=== PATIENT | male | born 1940 | race Caucasian/White ===

== ENCOUNTER 2023-11-12 13:28 | Emergency (ER) | payer MEDICARE, OTHER, SELFPAY ==
[2023-11-12 13:29] VITALS: BP 168/79
--- NOTE | 2023-11-12 14:14 | ED.GENMED ---
History of Present Illness
General
Chief Complaint: Skin Surface Trauma
Source: patient
Exam Limitations: none
Time Seen by Provider: 11/12/23 13:46
Travel History
Have you had any contact with someone who has COVID-19?: No
Do you have any symptoms of coronavirus? Fever > 100 degrees, chills, cough, shortness of breath, sore throat, loss of taste or smell, muscle aches, or headache?: No
History of Present Illness
History of Present Illness:
83-year-old male presents with tablesaw injury to right index middle and ring fingers. Last tetanus was in 2018. He denies numbness or tingling or loss of function. No other complaints at this time
Past History
Past History
ED Past Medical History: CAD, Cancer (Thyroid cancer), HTN, Hypercholesterolemia, Hypothyroidism and Other (Ulcerative colitis ,)
ED Past Surgical History: Cardiac (Stents X 2), Orthopedic and Other (Hernia repair, colectomy, ileostomy Pre-Cancerous)
Social History
Tobacco: Non-smoker
Alcohol: None
Drug: None
Personal:
Living: with family
Employment: Employed
Family History
Family History: Other
Phy Exam
Physical Exam
Physical Exam:
General: Well-appearing male no acute respiratory distress HEENT: Normocephalic atraumatic neck is supple
Skin: Right middle finger distally with superficial laceration that involves the volar surface of the finger and distal portion of the nail the right index finger has an injury to the distal portion of the nail but no skin injury and the ring finger
has a chipped part of the nail but no skin laceration
Musculoskeletal exam: Good range of motion all fingers right hand
Neurologic: Good sensation right hand
Course
Orders/Labs/Results
Orders:
Orders
11/12/23 13:32
Hand, Right 3 View [CR Hand - Right Min 3 Views] Urgent
Comment: saw went across hand. middle is the worse
Reason For Exam: attention to index/middle/ring finger tips
11/12/23 14:08
Tetanus/Diphth/Acelpertussis [Adacel] 0.5 ml IM .ONCE ONE
Vital Signs
Initial and Last Documented VS:
Initial Vital Signs
Temp Pulse Resp BP Pulse Ox
98.8 F 83 16 168/79 98
11/12/23 13:29 11/12/23 13:29 11/12/23 13:29 11/12/23 13:29 11/12/23 13:29
Last Documented Vital Signs
Temp Pulse Resp BP Pulse Ox
98.8 F 83 16 168/79 98
11/12/23 13:29 11/12/23 13:29 11/12/23 13:29 11/12/23 13:29 11/12/23 13:29
*Critical Care Note
Total Time (30-74mins, 75-104mins- exclusive of procedures): Not Applicable
Update Note
Update Note:
Loose and malposition pieces of the nail were trimmed off of the index middle and ring fingers of the right hand. The wounds were irrigated with saline. Wounds are well-approximated not currently bleeding no indication for sutures. X-rays of the
right hand were obtained through triage which I have personally reviewed and are negative for acute bony abnormality. Tetanus vaccine updated today and dressings were applied. Stable for discharge
ED Attending Note
-
Portions of this chart may have been created with voice recognition software.� Occasional wrong word or��sound alike� substitutions may have occurred due to the inherent limitations of voice recognition software.
Discharge Plan
Departure
Patient Disposition: Home (Routine Discharge)
Date of Disposition: 11/12/23
Time of Disposition: 14:16
Patient with high blood pressure during this ER visit?: No
Discharge Problem:
Laceration
Instructions: Wound Care (DC)
Prescriptions:
No Action
echinacea-knott seal 1 CAP capsule
1 cap PO DAILYPRN PRN (Reason: ON SET OF COLD )
tamsulosin 0.4 MG capsule
0.4 mg PO DAILY
finasteride 5 MG tablet
5 mg PO QPM
cholecalciferol (vitamin D3) [Vitamin D3] 1,000 UNIT capsule
1,000 unit PO QPM
levothyroxine 175 MCG tablet
175 mcg PO DAILY
desonide 15 GM cream
1 appful topical DAILYPRN PRN (Reason: LEG RASH)
enalapril maleate 10 MG tablet
20 mg PO DAILY
ascorbic acid (vitamin C) [Vitamin C] 500 MG tablet
500 mg PO BID
amlodipine 10 MG tablet
10 mg PO DAILY
aspirin 81 MG tablet,chewable
81 mg PO QPM
dextromethorphan-guaifenesin [Mucus Relief DM Cough] 1 EACH tablet
1 ea PO Q6HPRN PRN (Reason: stuffy nose)
Centrum Silver 1 EACH tablet
1 ea PO DAILY
Visbiome 112.5 billion cell Capsule
1 cap PO DAILY Qty: 0
omega 0-qql-cid-fish oil [Fish Oil] 1 EACH capsule
1 ea PO DAILY
wtvqpqesvcu-L0-Ecebdsola serr [Osteo Bi-Flex (5-Loxin)] 1 EACH tablet
1 ea PO BID
magnesium oxide 400 MG tablet
400 mg PO MOWEFR
atorvastatin [Lipitor] 40 mg Tablet
40 mg PO QPM
ibuprofen 400 mg Tablet
400 mg PO Q6HPRN PRN (Reason: MILD PAIN)
gabapentin 100 mg Capsule
100 mg PO DAILY
folic acid 0.8 mg Capsule
0.8 mg PO DAILY
calcium carbonate-vitamin D3 [Calcium 500 + D] 500 mg-10 mcg (400 unit) Tablet
1 tab PO DAILY
coQ10 (ubiquinol) 100 mg Capsule
100 mg PO QPM
clindamycin HCl
2 tab PO PRN PRN (Reason: dental)
acetaminophen 325 mg Tablet
650 mg PO Q6HPRN PRN (Reason: BURTON, mild pain, or fever >101F) Qty: 0 0RF
Referrals:
Eric Estrada MD [Family Provider] -
Activity Restrictions/Additional Instructions:
Apply antibacterial ointment to the wounds. Change dressing daily. You may use Tylenol if needed for pain. Return if needed otherwise
Interventions
Interventions:
*ED COVID-19 Vaccine History Last Done: 11/12/23 13:29
[2023-11-12] MEDS: ADACEL 0.5 ML IM (14:35)
== END 2023-11-12 14:43 | disposition home or self-care (01) ==
LOC: EMR 13:28
PROVIDERS: EMERGENCY PHYSICIAN Emergency Medicine; FAMILY PHYSICIAN Internal Medicine Geriatric Medicine
DX: S61.310A Laceration without foreign body of right index finger with damage to nail, initial encounter (principal); W31.2XXA Contact with powered woodworking and forming machines, initial encounter; Z23 Encounter for immunization
CPT/HCPCS: 99284; 90471; 73130; 90715

== ENCOUNTER → 2023-11-22 07:08 | Outpatient (REF) | payer MEDICARE, OTHER, SELFPAY | LOC: DHCBS MAIN 07:08 | PROVIDERS: ATTENDING PHYSICIAN Physician Assistant Medical; FAMILY PHYSICIAN Internal Medicine Geriatric Medicine | DX: I25.10 Atherosclerotic heart disease of native coronary artery without angina pectoris (principal); I35.0 Nonrheumatic aortic (valve) stenosis; Z95.2 Presence of prosthetic heart valve | CPT/HCPCS: 93306 ==

== ENCOUNTER → 2024-02-22 08:05 | Outpatient (REF) | payer MEDICARE, OTHER, SELFPAY ==
[2024-02-22 09:20] LABS: % Basophils 0.7 % (0-2); % Immature Granulocytes 0.4 % (0-0.5); % Lymphocytes 20.6 % (20.5-51.1); % Monocytes 9.5 % (1.7-9.3); % Neutrophils 64.8 % (42.2-75.2); Absolute Eosinophils 0.2 10^3/uL (0-0.7); Absolute Lymphocytes 0.9 10^3/uL (1.2-3.4); Absolute Monocytes 0.4 10^3/uL (0.1-0.6); Absolute Neutrophils 2.9 10^3/uL (1.4-6.5); Hematocrit 40.9 % (39.0-52.0); Hemoglobin 13.7 g/dL (13.0-18.0); Mean Corp Hgb Conc. 33.5 g/dL (33.0-37.0); Mean Corpuscular Hgb 31.1 pg (27.0-31.0); Mean Corpuscular Volume 92.7 fL (80.0-94.0); Mean Platelet Volume 9.4 fL (7.4-10.4); Nucleated Red Blood Cells % 0 % (-); Platelet Count 120 10^3/uL (130-400); Red Blood Cell Count 4.41 10^6/uL (4.70-6.10); Red Cell Dist. Width 13.4 % (11.5-14.5); White Blood Cell Count 4.5 10^3/uL (4.8-10.8)
[2024-02-22 09:32] LABS: Erythrocyte Sed Rate 10 mm/hour (0-20)
[2024-02-22 09:57] LABS: ALT (SGPT) 23 U/L (0-50); AST (SGOT) 26 U/L (17-59); Albumin 4.1 g/dl (3.5-5.0); Alkaline Phosphatase 74 U/L (38-126); Blood Urea Nitrogen 23 mg/dl (9-20); Calcium 9.4 mg/dl (8.4-10.2); Carbon Dioxide 23 mmol/L (22-30); Chloride 105 mmol/L (98-107); Glucose 104 mg/dl (70-99); HDL Cholesterol 49 mg/dl; LDL Cholesterol, Calculated 38 mg/dl; Potassium 4.5 mmol/L (3.5-5.1); Sodium 139 mmol/L (135-145); Total Cholesterol 112 mg/dl (50-199); Total Protein 6.2 g/dl (6.3-8.2); Triglyceride 126 mg/dl (10-149); Very Low Density Lipoprotein 25 mg/dl (0-30); eGFR > 60.00
[2024-02-22 10:26] LABS: Free T4 1.69 ng/dl (0.78-2.19); Vitamin D, 25-OH*** 43.1 ng/mL (30-80)
[2024-02-22 10:40] LABS: PSA, Total - Screen 1.65 ng/ml (0.0-4.0); TSH < 0.02 uIU/ml (0.47-4.68)
[2024-02-22 11:16] LABS: Folate > 20.0 ng/ml (2.76-20); Vitamin B12 593 pg/ml (239-931)
[2024-02-22 15:08] LABS: Lyme Antibody Screen, EIA Negative (Negative)
[2024-02-24 08:35] LABS: ANA, IgG Reflex to HEp-2 None Detected (None Detected)
== END ==
LOC: REG 08:05
PROVIDERS: ATTENDING PHYSICIAN Internal Medicine Geriatric Medicine
DX: Z00.00 Encounter for general adult medical examination without abnormal findings (principal); K51.90 Ulcerative colitis, unspecified, without complications; C73 Malignant neoplasm of thyroid gland; I10 Essential (primary) hypertension; E78.2 Mixed hyperlipidemia; I25.10 Atherosclerotic heart disease of native coronary artery without angina pectoris; I35.9 Nonrheumatic aortic valve disorder, unspecified; N40.0 Benign prostatic hyperplasia without lower urinary tract symptoms; G50.0 Trigeminal neuralgia; K43.3 Parastomal hernia with obstruction, without gangrene; Z13.31 Encounter for screening for depression; G62.9 Polyneuropathy, unspecified; R73.01 Impaired fasting glucose; R41.3 Other amnesia
CPT/HCPCS: 36415; 80053; 80061; 82306; 82607; 82746; 84439; 84443; 85025; 85652; 86038; 86618; G0103

== ENCOUNTER → 2024-03-19 06:45 | Outpatient (REF) | payer MEDICARE, OTHER, SELFPAY | LOC: MRI 3T 06:45 | PROVIDERS: ATTENDING PHYSICIAN Internal Medicine Geriatric Medicine | DX: R41.3 Other amnesia (principal); R73.01 Impaired fasting glucose | CPT/HCPCS: 70551 ==

== ENCOUNTER 2024-05-16 15:59 | Emergency (ER) | payer MEDICARE, OTHER, SELFPAY ==
[2024-05-16 16:00] VITALS: BP 101/72
[2024-05-16] MEDS: BENADRYL 50 MG PO (16:22)
--- NOTE | 2024-05-16 23:10 | ED.GENMED ---
History of Present Illness
General
Chief Complaint: Allergic Reaction
Source: patient and spouse
Exam Limitations: none
Time Seen by Provider: 05/16/24 16:10
Nursing documentation reviewed up to this point in time: agreed with
History of Present Illness
History of Present Illness:
Stung by a yellow jacket on left dorsal thumb. Hx of prior allergic response. states epi-pen was outdated so she brought him to ED. He denies any cp/pressure, SOB, difficulty breathing or swallowing. Erythema, mild swelling to left thumb.
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
Past History
Past History
ED Past Medical History: CAD, Cancer (Thyroid cancer), HTN, Hypercholesterolemia, Hypothyroidism and Other (Ulcerative colitis ,)
ED Past Surgical History: Cardiac (Stents X 2), Orthopedic and Other (Hernia repair, colectomy, ileostomy Pre-Cancerous)
Social History
Tobacco: Non-smoker
Alcohol: None
Drug: None
Personal:
Living: with family
Employment: Employed
Family History
Family History: Other
Review of Systems
Review of Systems
Allergies reviewed?: Yes
All Other Systems: ROS reviewed and negative except as documented in HPI and ROS
Constitutional: Reports no symptoms
EENT: Reports no symptoms
Respiratory: Reports no symptoms
Cardiac: Reports no symptoms
ABD/GI: Reports no symptoms
Musculoskeletal: Reports no symptoms
Skin: Reports other (bee sting to left thumb)
Neurological: Reports no symptoms
Psychiatric: Reports no symptoms
Phy Exam
General Physical Exam
General Presentation: well appearing and no apparent distress
General age: appears stated age
General Skin: warm and dry
General Habitus: normal
General Mental: alert
ENT Exam
ENT Exam: pharynx normal, neck supple and swallowing well
Cardiovascular Exam
Cardiovascular Exam: regular rate/rhythm and no edema
Pulmonary Exam
Pulmonary Exam: lungs clear and no respiratory distress
Musculoskeletal Exam
Musculoskeletal Exam: full ROM and neuro vasc intact
Skin Exam
Skin Exam: normal color and warm/dry
Psychiatric Exam
Psychiatric Exam: normal mood/affect
Course
Orders/Labs/Results
Orders:
Orders
05/16/24 16:19
Diphenhydramine [Benadryl] 50 mg PO NOW STA
Vital Signs
Initial and Last Documented VS:
Initial Vital Signs
Temp Pulse Resp BP Pulse Ox
99.2 F 73 20 101/72 96
05/16/24 16:00 05/16/24 16:00 05/16/24 16:00 05/16/24 16:00 05/16/24 16:00
Last Documented Vital Signs
Temp Pulse Resp BP Pulse Ox
99.2 F 73 20 101/72 96
05/16/24 16:00 05/16/24 16:00 05/16/24 16:00 05/16/24 16:00 05/16/24 16:00
*Critical Care Note
Total Time (30-74mins, 75-104mins- exclusive of procedures): Not Applicable
Update Note
Update Note:
No evidence of allergic response. Mild erythema to thumb. LCTA. HRR PUlse ox 97%RA, swallowing well. May continue benadryl prn swelling and itching. Given instructions on s/s to return to ED and he is agreeable to plan.
ED Attending Note
-
Portions of this chart may have been created with voice recognition software.� Occasional wrong word or��sound alike� substitutions may have occurred due to the inherent limitations of voice recognition software.
Discharge Plan
Departure
Patient Disposition: Home (Routine Discharge)
Date of Disposition: 05/16/24
Time of Disposition: 16:19
Patient with high blood pressure during this ER visit?: No
Condition: Good
Discharge Problem:
Bee sting
Instructions: Insect Bites and Stings ED
Prescriptions:
New
epinephrine [EpiPen] 0.3 mg/0.3 mL auto-injector
0.3 mg IM DIRECTED PRN (Reason: anaphylaxis) Qty: 1 1RF
No Action
echinacea-knott seal 1 CAP capsule
1 cap PO DAILYPRN PRN (Reason: ON SET OF COLD )
tamsulosin 0.4 MG capsule
0.4 mg PO DAILY
finasteride 5 MG tablet
5 mg PO QPM
cholecalciferol (vitamin D3) [Vitamin D3] 1,000 UNIT capsule
1,000 unit PO QPM
levothyroxine 175 MCG tablet
175 mcg PO DAILY
desonide 15 GM cream
1 appful topical DAILYPRN PRN (Reason: LEG RASH)
enalapril maleate 10 MG tablet
20 mg PO DAILY
ascorbic acid (vitamin C) [Vitamin C] 500 MG tablet
500 mg PO BID
amlodipine 10 MG tablet
10 mg PO DAILY
aspirin 81 MG tablet,chewable
81 mg PO QPM
dextromethorphan-guaifenesin [Mucus Relief DM Cough] 1 EACH tablet
1 ea PO Q6HPRN PRN (Reason: stuffy nose)
Centrum Silver 1 EACH tablet
1 ea PO DAILY
Visbiome 112.5 billion cell Capsule
1 cap PO DAILY Qty: 0
omega 9-fqa-zxc-fish oil [Fish Oil] 1 EACH capsule
1 ea PO DAILY
dktbqgterxv-K6-Wfydezdji serr [Osteo Bi-Flex (5-Loxin)] 1 EACH tablet
1 ea PO BID
magnesium oxide 400 MG tablet
400 mg PO MOWEFR
atorvastatin [Lipitor] 40 mg Tablet
40 mg PO QPM
ibuprofen 400 mg Tablet
400 mg PO Q6HPRN PRN (Reason: MILD PAIN)
gabapentin 100 mg Capsule
100 mg PO DAILY
folic acid 0.8 mg Capsule
0.8 mg PO DAILY
calcium carbonate-vitamin D3 [Calcium 500 + D] 500 mg-10 mcg (400 unit) Tablet
1 tab PO DAILY
coQ10 (ubiquinol) 100 mg Capsule
100 mg PO QPM
clindamycin HCl
2 tab PO PRN PRN (Reason: dental)
acetaminophen 325 mg Tablet
650 mg PO Q6HPRN PRN (Reason: BURTON, mild pain, or fever >101F) Qty: 0 0RF
Activity Restrictions/Additional Instructions:
Continue Benadryl 25-50mg every 4-6 hours as needed for itching, swelling. Use epi-pen immediatly for any throat symptoms, difficulty breathing and then return to the emergency department by 911 immediately.
Interventions
Interventions:
*Risk Screen - Suicide Last Done: 05/16/24 16:00
*General Assessment Last Done: 05/16/24 16:00
*Neglect/Abuse Screening Last Done: 05/16/24 16:00
*Nursing Disposition Last Done: 05/16/24 16:52
ED- Cardiac Assessment Last Done: 05/16/24 16:10
ED- Pulmonary Assessment Last Done: 05/16/24 16:10
ED-Skin Assessment Last Done: 05/16/24 16:08
Discharge Date and Time
Discharge Date/Time: 05/16/24 16:53
Print Language: AUSTRIAN
Skin Exam
Bee Sting
Left Thumb:
Pt has: single bite/sting
Surrounding area around sting/bite has: area of erythema/swelling
== END 2024-05-16 16:53 | disposition home or self-care (01) ==
LOC: EMR 15:59
PROVIDERS: EMERGENCY PHYSICIAN Emergency Medicine; FAMILY PHYSICIAN Internal Medicine Geriatric Medicine
DX: T63.441A Toxic effect of venom of bees, accidental (unintentional), initial encounter (principal)
CPT/HCPCS: 99283

== ENCOUNTER → 2024-09-22 07:57 | Outpatient (REF) | payer MEDICARE, OTHER, SELFPAY | LOC: HWRCS 07:57 | PROVIDERS: ATTENDING PHYSICIAN Nuclear Medicine Nuclear Cardiology; FAMILY PHYSICIAN Internal Medicine Geriatric Medicine | DX: I25.10 Atherosclerotic heart disease of native coronary artery without angina pectoris (principal) | CPT/HCPCS: 93306 ==

== ENCOUNTER → 2024-10-09 10:54 | Outpatient (REF) | payer MEDICARE, OTHER, SELFPAY | LOC: HWRAD 10:54 | PROVIDERS: ATTENDING PHYSICIAN Family Medicine | DX: R05.1 Acute cough (principal); J06.9 Acute upper respiratory infection, unspecified; Z87.01 Personal history of pneumonia (recurrent) | CPT/HCPCS: 71046 ==

== ENCOUNTER → 2024-10-10 11:26 | Outpatient (REF) | payer MEDICARE, OTHER, SELFPAY | LOC: HWRAD 11:26 | PROVIDERS: ATTENDING PHYSICIAN Family Medicine | DX: R91.1 Solitary pulmonary nodule (principal) | CPT/HCPCS: 71250 ==

== ENCOUNTER → 2024-11-20 11:28 | Outpatient (REF) | payer MEDICARE, OTHER, SELFPAY | LOC: HWRAD 11:28 | PROVIDERS: ATTENDING PHYSICIAN Family Medicine | DX: Z87.01 Personal history of pneumonia (recurrent) (principal) | CPT/HCPCS: 71046 ==

== ENCOUNTER 2025-01-27 21:44 | Observation (INO) | payer MEDICARE, OTHER, SELFPAY ==
[2025-01-27 14:04] VITALS: BP 143/66
[2025-01-27 14:14] VITALS: BP 127/59
[2025-01-27] MEDS: ZOFRAN 4 MG IV ×2 (14:32→15:50)
[2025-01-27] MEDS: NSS 500 IV ×2 (14:32→21:11)
[2025-01-27] MEDS: DILAUDID 0.5 MG IV (14:33)
[2025-01-27 14:34] VITALS: BMI 37.6
--- NOTE | 2025-01-27 14:34 | ED.GENMED ---
History of Present Illness
General
Chief Complaint: Abdominal Pain
Source: patient and spouse
Exam Limitations: none
Time Seen by Provider: 01/27/25 14:15
Nursing documentation reviewed up to this point in time: agreed with
History of Present Illness
History of Present Illness:
Patient with history of ileostomy and subsequent colostomy bag, as well as known ventral hernia around his stoma, presents to ED secondary to sudden onset of abdominal pain with nausea and vomiting starting last night. Abdominal pain described as
crampy, diffuse, without any alleviating or exacerbating factors. Since onset of symptoms, patient does however, state that there has been stool output within his colostomy bag. In addition, patient states that his ventral hernia has grown in
size. He has been told by his surgeon that hernia repair will need to be deferred until 'absolutely necessary', as it will require establishment of new stoma site. Denies fever or chills. Denies trauma. Denies recent change in medications or
diet.
Past History
Past History
ED Past Medical History: CAD, Cancer (Thyroid cancer), HTN, Hypercholesterolemia, Hypothyroidism and Other (Ulcerative colitis ,)
ED Past Surgical History: Cardiac (Stents X 2), Orthopedic and Other (Hernia repair, colectomy, ileostomy Pre-Cancerous)
Social History
Tobacco: Non-smoker
Alcohol: None
Drug: None
Personal:
Living: with family
Employment: Employed
Family History
Family History: Other
Review of Systems
Review of Systems
Allergies reviewed?: Yes
All Other Systems: ROS reviewed and negative except as documented in HPI and ROS
Constitutional: Reports no symptoms
EENT: Reports no symptoms
Respiratory: Reports no symptoms
Cardiac: Reports no symptoms
ABD/GI: Reports abdominal pain, nausea and vomiting
: Reports no symptoms
Musculoskeletal: Reports no symptoms
Skin: Reports no symptoms
Neurological: Reports no symptoms
Phy Exam
Physical Exam
Physical Exam:
Physical Exam
General: moderate distress, acutely ill. afebrile
Head: nc/at. eomi
Neck: supple. no meningeal signs.
Heart: s1/s2 regular rate and rhythm, no murmur.
Lungs: no acute respiratory distress. clear bilaterally
Abdomen: normal bowel sounds. colostomy bag present over RLQ with diffuse tenderness to palpation
Neuro: alert and oriented x 3. no focal neurological deficits
Skin: no rash
Psychiatric: well kept. interactive and cooperative
Extremities: no edema. no calf tenderness.
Course
Orders/Labs/Results
Orders:
Orders
01/27/25
Electrocardiogram (*1) Stat
Comment: ALREADY DONE
01/27/25 14:22
0.9% Sodium Chloride 500 ml [Nss] 500 ml IV BOLUS
HYDROmorphone [Dilaudid] 0.5 mg IV NOW STA
Ondansetron Injectable [Zofran] 4 mg IV NOW STA
CR Obstruct Series W/pa Chest Urgent
Comment:
Reason For Exam: abd pain w vomiting. hx SBO
01/27/25 14:26
Complete Blood Count/With Diff Urgent
Comprehensive Metabolic Panel Urgent
Lipase Urgent
01/27/25 Dinner
Clear Liquid
At Your Request: Limited Participation
Does patient need a safe tray?: No
01/27/25 15:17
CT Abd/pel W Iv And Oral Contr Urgent
Comment:
Reason For Exam: abd pain w hx ventral hernia/SBO
Iohexol [Omnipaque] See Protocol PO NOW STA
01/27/25 15:20
Ondansetron Injectable [Zofran] 4 mg IV NOW STA
01/27/25 21:00
0.9% Sodium Chloride 500 ml [Nss] 500 ml IV 100 mls/hr
01/27/25 21:28
Admit/Transfer Patient As Directed
Co-Sign Provider:
Level of Care: Observation services
Assign to:: Medical/Surgical
Physician / Group: Beatrice Whitehead
Diagnosis: small bowel obstruction, nausea, vomiting, abdominal pain
01/27/25 21:29
PRN Pain Medication Management As Directed
May give lesser potent ordered pain med per pt: Yes
preference::
Protocol:: Medication orders for pain may be administered in a
manner that supports deferring to patient preference
when the pt is:
- Requesting an ordered lesser potent pain medication.
Least to most potent pain medications are defined
as: acetaminophen < NSAID < tramadol < opioids
(morphine, oxycodone, hydromorphone).
- Requesting a lesser dose of the same medication IF
ORDERED.
- Requesting a less intrusive route of administration
if both routes are prescribed by the provider (PO <
IV).
01/27/25 21:30
Code Status As Directed
Resuscitation Status: Full Code
01/27/25 23:08
0.9% Sodium Chloride 1000 ml [Nss] 1,000 ml IV 80 mls/hr
Acetaminophen [Tylenol] 650 mg PO Q4HPRN PRN
Ketorolac [Toradol] 10 mg IV Q6HPRN PRN
Morphine Sulfate 2 mg IV Q4HPRN PRN
01/27/25 23:08
Activity As Directed
Activity Level: As Tolerated
Intake/ Output As Directed
Frequency: Per unit guidelines
Vital Signs As Directed
Frequency: Per unit guidelines
Weight As Directed
Frequency: Once
Comment: on admission
Cpap [RESP] Routine
Patient to use own unit?: Yes
Instructions: HS and PRN
DX Deep Vein Thrombosis Video Routine
01/28/25 06:00
Levothyroxine [Synthroid] 175 mcg PO DAILY @ 0600
01/28/25 08:00
Amlodipine [Norvasc] 10 mg PO DAILY
Ascorbic Acid [Vitamin C] 500 mg PO DAILY
Enalapril [Vasotec] 20 mg PO DAILY
Gabapentin [Neurontin] 100 mg PO DAILY
Lactobac/Bifidobac [Visbiome] 1 cap PO DAILY
Multivitamin [Theragran] 1 tablet PO DAILY
Multivitamin [Theragran] 1 tablet PO DAILY
01/28/25 18:00
Aspirin Chewable [Low Strength Aspirin] 81 mg PO QPM
Atorvastatin [Lipitor] 40 mg PO QPM
Cholecalciferol (Vitamin D3) [VITAMIN D3 (cholecalciferol)] 25 mcg PO QPM
Enoxaparin Sodium [Lovenox] 40 mg SC QPM
Finasteride [Proscar] 5 mg PO QPM
Tamsulosin [Flomax] 0.4 mg PO QPM
coQ10 (ubiquinol) 100 mg PO QPM
Abnormal Lab Results
01/27/25
14:26
RBC 4.53 L 10^6/uL
(4.70-6.10)
MCH 32.0 H pg
(27.0-31.0)
Absolute Neuts (auto) 7.2 H 10^3/uL
(1.4-6.5)
Absolute Monos (auto) 0.8 H 10^3/uL
(0.1-0.6)
Lymphocytes % 17.5 L %
(20.5-51.1)
Glucose 131 H mg/dl
(70-99)
01/27/25 14:26
01/27/25 14:26
Vital Signs
Initial and Last Documented VS:
Initial Vital Signs
Pulse Resp BP Pulse Ox
59 18 143/66 87
01/27/25 14:04 01/27/25 14:04 01/27/25 14:04 01/27/25 14:04
Last Documented Vital Signs
Temp Pulse Resp BP Pulse Ox
97.7 F 97 18 152/66 97
01/28/25 15:39 01/28/25 15:39 01/28/25 15:39 01/28/25 15:39 01/28/25 15:39
MDM/Problems Addressed
MDM/Problems Addressed:
History, exam, and CT scan concerning for recurrent small bowel obstruction. Patient will be admitted for further evaluation and treatment. Will hold off NG tube at this time, as patient's symptoms have improved significantly.
*EKG
Interpreted by ED Provider?: Yes
EKG Intrepretation Date: 01/27/25
Heart Rate: 60
Rhythm: sinus
[place]: left axis deviation
Interval: normal interval
QRS Pattern: normal QRS
*Critical Care Note
Total Time (30-74mins, 75-104mins- exclusive of procedures): Not Applicable
ED Attending Note
-
Portions of this chart may have been created with voice recognition software.� Occasional wrong word or��sound alike� substitutions may have occurred due to the inherent limitations of voice recognition software.
Discharge Plan
Departure
Patient Disposition: Admit
Date of Disposition: 01/27/25
Time of Disposition: 20:50
Admit to: Telemetry
Presentation/result/management discussed w/ accepting MD/DO: Hospitalist
Discharge Problem:
Small bowel obstruction
Interventions
Interventions:
*Risk Screen - Suicide Last Done: 01/27/25 14:06
*General Assessment Last Done: 01/27/25 14:06
*Neglect/Abuse Screening Last Done: 01/27/25 14:06
*ED- Fall Risk Assessment Last Done: 01/27/25 23:13
*ED COVID-19 Vaccine History Last Done: 01/27/25 14:06
*Nursing Disposition Last Done: 01/27/25 23:13
RD-Ieykqh-Swsxifumjw Assessment Last Done: 01/27/25 14:20
Discharge Date and Time
Discharge Date/Time: 01/27/25 23:14
[2025-01-27 14:35] LABS: % Basophils 0.3 % (0-2); % Eosinophils 2.2 % (0-6); % Immature Granulocytes 0.3 % (0-0.5); % Lymphocytes 17.5 % (20.5-51.1); % Monocytes 8.2 % (1.7-9.3); % Neutrophils 71.5 % (42.2-75.2); Absolute Eosinophils 0.2 10^3/uL (0-0.7); Absolute Lymphocytes 1.8 10^3/uL (1.2-3.4); Absolute Monocytes 0.8 10^3/uL (0.1-0.6); Absolute Neutrophils 7.2 10^3/uL (1.4-6.5); Hematocrit 40.9 % (39.0-52.0); Hemoglobin 14.5 g/dL (13.0-18.0); Mean Corp Hgb Conc. 35.5 g/dL (33.0-37.0); Mean Corpuscular Volume 90.3 fL (80.0-94.0); Mean Platelet Volume 8.9 fL (7.4-10.4); Nucleated Red Blood Cells % 0 % (-); Platelet Count 130 10^3/uL (130-400); Red Blood Cell Count 4.53 10^6/uL (4.70-6.10); Red Cell Dist. Width 13.2 % (11.5-14.5); White Blood Cell Count 10.1 10^3/uL (4.8-10.8)
[2025-01-27 14:50] LABS: ALT (SGPT) 22 U/L (0-50); AST (SGOT) 22 U/L (17-59); Albumin 4.1 g/dl (3.5-5.0); Alkaline Phosphatase 86 U/L (38-126); Blood Urea Nitrogen 18 mg/dl (9-20); Calcium 9.5 mg/dl (8.4-10.2); Carbon Dioxide 23 mmol/L (22-30); Chloride 105 mmol/L (98-107); Estimated Creatinine Clearance 71 ml/min; Glucose 131 mg/dl (70-99); Lipase 95 U/L (23-300); Potassium 4.1 mmol/L (3.5-5.1); Sodium 138 mmol/L (135-145); Total Protein 6.3 g/dl (6.3-8.2); eGFR > 60.00
[2025-01-27] MEDS: OMNIPAQUE 50 ML PO (15:51)
--- NOTE | 2025-01-27 20:52 | HPS.HSE ---
Family Physician
-
Family Physician: Veronica Aranda
Chief Complaint
-
abdominal pain/nausea/vomiting
History of Present Illness
Patient is a 84-year-old male with past medical history significant for essential hypertension, hyperlipidemia, ASCVD, BPH, severe aortic stenosis, parastomal hernia and Hx ulcerative colitis who presented to [facility] for evaluation of acute onset
abdominal pain associated with nausea and vomiting. Patient reports acute onset of abdominal pain associated with nausea and vomiting last night around 2100. He describes pain as crampy, localized and no aggravating factors. He denies fever, chills
or urinary symptoms. He explains his known peristomal hernia appears slightly bigger than before. He is following with surgeon out patient who is watching closely and no intervention is planned until absolutely necessary r/t need to create new stoma
site.
Medical History
Past Medical History
Past Medical History: Reports Other
Additional Past Medical History:
essential hypertension
hyperlipidemia
ASCVD
BPH
hypothyroidism
TIM
severe aortic stenosis
parastomal hernia
Hx ulcerative colitis
Past Surgical History: Reports Other
Additional Past Surgical History:
R knee replacement 08/2003
Hernia repair, umbilical 08/18/2013
angioplasty 01/14/2013
Ileostomy 11/15/2016
Knee replacement 08/2004
knee replacement 01/14/2013
abdominal hernia repair 01/14/2013
Ileostomy(2012) 11/11/2013
Thyroidectomy [[facility]] 01/2018
[id number]
[id number]
Left L3 and L4 TFESI 07/28/2020
percutaneous R transfemoral transcatheter aortic valve replacement with a 29mm Jacobo S3 valve (MPT/HM - 04/12/23) 03/2023
Tooth extraction 06/26/2024
L eye cataract 02/28/2024
R eye cataract 02/14/2024
Social History
Tobacco: Non-smoker
Alcohol: Occasional
Drug: None
Personal:
Living: With Family
Family History
Family History: Not pertinent
Allergies / Home Medications
Allergies reflects when Allergies were last updated in [facility].
Home Medications with original date entered in [facility]
Allergy/Medication List:
Allergies
Allergy/AdvReac Type Severity Reaction Status Date / Time
bee pollen Allergy Swelling Verified 01/27/25 14:05
cortisone Allergy intestinal Verified 01/27/25 14:05
slow down
Penicillins AdvReac Unknown nausea/vomiting; Verified 01/27/25 14:05
upset
stomach
Home Medications
cholecalciferol (vitamin D3) 25 mcg (1,000 unit) capsule (Vitamin D3) 1,000 unit PO QPM Supplement 02/24/18
finasteride 5 mg tablet 5 mg PO QPM Urinary issue 02/24/18
tamsulosin 0.4 mg capsule 0.4 mg PO QPM Urinary issue 02/24/18
levothyroxine 175 mcg tablet 175 mcg PO DAILY Thyroid 07/30/20
Lactobac no.2-Bifidobac no.1-S. thermo 112.5 billion cell capsule (Visbiome) 1 cap PO DAILY Gastrointestinal issue ##0 11/02/20
amlodipine 10 mg tablet 10 mg PO DAILY Blood pressure 11/02/20
ascorbic acid (vitamin C) 500 mg tablet (Vitamin C) 500 mg PO DAILY Supplement 11/02/20
aspirin 81 mg chewable tablet 81 mg PO QPM Heart disease/condition 11/02/20
enalapril maleate 10 mg tablet 20 mg PO DAILY Blood pressure 11/02/20
gwrmyvhp-ntk-iucjm acid 0.4 mg-lycopene 300 mcg-lutein 250 mcg tablet (Centrum Silver) 1 ea PO DAILY Supplement 11/02/20
atorvastatin 40 mg tablet (Lipitor) 40 mg PO QPM 10/05/22
coQ10 (ubiquinol) 100 mg capsule 100 mg PO QPM 10/05/22
gabapentin 100 mg capsule 100 mg PO DAILY 10/05/22
therapeutic multivitamin 1 tab PO DAILY 01/27/25
Review of Systems
-
History Source: Patient
Constitutional: Reports No Symptoms
EENT: Reports No Symptoms
Respiratory: Reports No Symptoms
Cardiac: Reports No Symptoms
Abdomen/GI: Reports Abdominal Pain, Nausea and Vomiting
: Reports No Symptoms
Musculoskeletal: Reports No Symptoms
Skin: Reports No Symptoms
Neurological: Reports No Symptoms
Endocrine: Reports No Symptoms
Hematologic/Lymphatic: Reports No Symptoms
Psych: Reports No Symptoms
Physical Exam
Vital Signs
Vital Signs
Pulse Resp BP Pulse Ox
52 16 127/59 98
01/27/25 17:30 01/27/25 17:30 01/27/25 14:14 01/27/25 17:30
Physical Exam
General: Well Developed, Well Nourished, No Apparent Distress, Comfortable, Conversant and Obese
HEENT: NormoCephalic, Moist mucous membranes, Atraumatic, [place] Conjunctivae, Nose Appears Normal and Ears Appear Normal
Respiratory: Clear
Cardiac: S1/S2 and Regular Rhythm
Breast: Deferred by me
GI: Soft, Tender, Distended and Ostomy (RLQ)
Rectal: Deferred by Provider
Genito-urinary: Deferred by me
Musculoskeletal: No Clubbing, No Cyanosis and No Edema
Skin: Warm and IV/Catheter Site
Neuro: Awake, Alert, AO x 3 and Nonfocal/grossly intact
Psych: Calm and Intact Judgment/Insight
Laboratory Results
-
01/27/25 14:26
01/27/25 14:26
Laboratory Results
Total Bilirubin 1.0 mg/dl (0.2-1.3) 01/27/25 14:26
AST 22 U/L (17-59) 04/29/25 14:26
ALT 22 U/L (0-50) 01/27/25 14:26
Alkaline Phosphatase 86 U/L (38-126) 01/27/25 14:26
Lipase 95 U/L (23-300) 01/27/25 14:26
Data Reviewed
-
Diagnostic Radiology: Report Reviewed by me (Chest/Abd: 1. Very little bowel gas in the abdomen and pelvis suggesting either diffuse fluid-filled small bowel and colon or diffuse bowel collapse. 2. Cholelithiasis. 3. Previous TAVR)
CT Scan: Report Reviewed by me (Abd/Pel: Bowel assessment limited by lack of enteric contrast. Prior colectomy. Right mid to lower abdomen diverting ileostomy with herniation of mesenteric fat and numerous small bowel loops within the hernia sac
measuring 14 cm. There are a few small bowel loops within the hernia with mild flui)
Lab Data: Labs Reviewed by me
Impression/Plan
-
IMPRESSION/PLAN:
#abdominal pain, nausea, vomiting
Chest/Abdomen x-ray: 1. Very little bowel gas in the abdomen and pelvis suggesting either diffuse fluid-filled small bowel and colon or diffuse bowel collapse.
2. Cholelithiasis.
3. Previous TAVR
Abd/Pel CT: Bowel assessment limited by lack of enteric contrast.
Prior colectomy.
Right mid to lower abdomen diverting ileostomy with herniation of mesenteric fat and numerous small bowel loops within the hernia sac measuring 14 cm.
There are a few small bowel loops within the hernia with mild fluid distention and mild wall thickening. Trace amount of fluid within the hernia sac. There are a few small bowel loops within
the mid to lower abdomen which are also slightly distended with intraluminal fluid. Findings suggest an element of small bowel obstruction.
- Admit to med/surg
- lisa IVF NSS 80cc/hr
- clear liquid diet consider advancing as tolerated
- antiemetics
- pain regimen
- symptoms improving, consider surgical consult if symptoms return
#essential hypertension
- continue amlodipine and enalapril
#hyperlipidemia
#ASCVD
- continue aspirin and atorvastatin
#BPH
- continue finasteride and tamsulosin
#hypothyroidism
- continue levothyroxine
#TIM
- patient has own CPAP
#severe aortic stenosis
#parastomal hernia
#Hx ulcerative colitis
Code status: full code
DVT prophylaxis: Lovenox sq
--- NOTE | 2025-01-27 21:15 | W.PN.UPDATE ---
Update Note
Progress Note Update
Patient seen in conjunction with ANNIE. I agree the findings mentioned physical. I concur with the assessment and plan listed otherwise.
Briefly, this is a 85-year-old male with past medical history significant for hypertension, hyperlipidemia, cad s/p stenting, TIM on CPAP, hypothyroid, CAD, thyroid cancer, inflammatory bowel disease status post colectomy with end ileostomy
presenting to the emergency department with 1 day history of abdominal pain. Patient reported that a few days ago he ate injured his abdomen and had to change his ostomy bag. He saw a small amount of blood at the site. I did not have any pain at
that time. He denied any new episodes of constipation. He had pain over the last 1 day starting last night he started having crampy intermittent abdominal pain without nausea or vomiting. Denies any fevers or chills. He reports he has not eaten
much since then and he has decreased output from the ostomy. The content was pasty. He had a nonbilious and nonbloody emesis today. He then came to the emergency department. He said that there is mild increase in his ventral hernia.
Patient reports similar episodes in the past usually treated conservatively without NG decompression.
Currently reports minimal pain, no nausea or vomiting.
He was afebrile, blood pressure was 127/60 with a pulse of 52, satting 98% on room air.
CBC was unremarkable. Electrolytes BUN/creatinine were stable.
CT scan of the abdomen pelvis showed findings suggestive of an element of small bowel obstruction. There was right mid to lower abdomen diverting ileostomy with herniation of mesenteric fat and number of small bowel loops within the hernia sac
measuring 14 cm. Diffuse small bowel loops within the mid to lower abdomen were slightly distended with intraluminal fluid.
Assessment and plan
Early versus mild small bowel obstruction associated with content of bowel loops in the hernia sac. No evidence of incarceration or strangulation. Minimally distended abdomen. Reduced but positive bowel sounds. Well appearing and symptoms mostly
improved.
SBO
- admit to med/surg obs
- clear liquid diet, advance as tolerated
- serial examinations
- gentle hydration for now
- antiemetics and pain control
- no indication for NG decompression
- if intolerant of PO or has changes in symptoms will consult surgery
- continue his usual meds
- continue home cpap
DVT PPX - lovenox sq
Code status - full code
[2025-01-27 21:18] VITALS: BP 151/81
[2025-01-27 23:20] VITALS: BP 151/81
[2025-01-27] MEDS: NSS 1000 IV (23:45)
[2025-01-27 23:55] VITALS: BMI 37.5
--- NOTE | 2025-01-27 23:55 | PTCARENOTE ---
Patient received from ED, AAOX3, ambulated from stretcher to bed. Offers no complaints. Apical regular. Lungs clear, on room air. Abdomen obese with hypoactive bowel sounds. illeostomy noted. Voiding. #18 g in right hand with IVF infusing as
ordered. Plan of care discussed, call carlos within reach
[2025-01-28] MEDS: SYNTHROID 175 MCG PO (06:14)
[2025-01-28] MEDS: THERAGRAN 1 TABLET PO (08:01)
[2025-01-28] MEDS: NORVASC 10 MG PO (08:01)
[2025-01-28] MEDS: VITAMIN C 500 MG PO (08:01)
[2025-01-28] MEDS: VISBIOME 1 CAP PO (08:01)
[2025-01-28] MEDS: VASOTEC 20 MG PO (08:02)
[2025-01-28] MEDS: NEURONTIN 100 MG PO (08:02)
[2025-01-28] MEDS: NSS 1000 IV (08:04)
[2025-01-28 08:08] VITALS: BP 152/72
--- NOTE | 2025-01-28 12:14 | W.PN.HOSP.TC ---
Today's Communication/Plan
-
Advance to LRD
Plan to DC with close PCP follow-up if tolerating
Will plan for surgery eval and consideration of NGT if symptoms recur
Assessment / Plan
Assessment / Plan
#Recurrent SBO
#Herniation of peristomal mesenteric fat
#H/O UC s/p colectomy with end ileostomy
-Likely due to adhesive disease; presented with abdomen pain, nausea/vomiting, poor output from ostomy
-CT A/P showed evidence of mild small bowel obstruction with peristomal mesenteric fat herniation
-Symptomatically was improved near time of admission, no NGT needed, CLD initiated at admission
-As of morning 01/28/2025 does have some output from ostomy, improved symptoms, no N/V
-Will escalate to low residue diet for PO trial
-Consider discharge if tolerating full diet
-If symptoms recur will consider NGT and consult surgery
-Continue with serial abdomen exam
#CAD s/p PCI
#Dylipidemia
-Home medications include aspirin and high intensity statin
-No history of significant cardiac systolic dysfunction
-No signs of ACS
#TIM on CPAP
#Obesity
-Associated with obesity which affects all aspects of care
-No history of significant pulmonary hypertension
-Respiratory status stable
#Iatrogenic hypothyroidism
#H/O thyroid cancer s/p resection
-Unclear histopathology and stage of previous cancers; underwent resection in the past
-Home regimen now includes levothyroxine 175 mcg daily
-No signs of thyroid dysfunction here
#Primary hypertension
-No known history of hypertensive systemic disease
-Home regimen includes enalapril and amlodipine
-Will monitor blood pressure
#BPH
-Home regimen includes finasteride and tamsulosin
-No signs of outlet obstruction at this
Diet: LRD
DVT prophylaxis: SQ Lovenox
CODE STATUS: Full code
Anticipated Discharge: Within 24 hours
Subjective/Interval History
-
Date of Service: January 28, 2025
Seen and examined at the bedside. No acute events reported overnight. AFVSS this morning
Has started to have some stool output from ostomy. No abdomen pain this morning. 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
Labs stable. He denies any new complaints as of this morning
Objective Data
-
Vital Signs:
Vital Signs
Temp Pulse Resp BP Pulse Ox
98 F 59 20 152/72 96
01/28/25 08:08 01/28/25 08:08 01/28/25 08:08 01/28/25 08:08 01/28/25 08:08
I&O
01/27/25 01/28/25 01/29/25
06:59 06:59 06:59
Intake Total 480 / 480
Output Total 250 / 250
Balance 480 / 480 -250 / -250
Review of Systems
-
History Source: Patient
All other systems: Reviewed and negative
Physical Exam
-
General: Well Developed, No Apparent Distress, Comfortable and Obese
HEENT: Normocephalic, Atraumatic, Moist Mucous Membranes and Anicteric
Respiratory: Clear to Auscultation and Non Labored Respirations; Negative Accessory Resp Muscle Use
Cardiac: Regular Rhythm and S1/S2; Negative Murmur, Rub or Gallop
GI: Soft, Nontender, Nondistended, Normal Bowel Sounds and Ostomy
Musculoskeletal: No Clubbing, No Cyanosis and No Edema
Skin: Warm, Dry and Normal Turgor; Negative Rash
Neuro: AO x 3 and Nonfocal/Grossly Intact
Psych: Calm
Data Reviewed
-
Labs: Labs Reviewed by me, Discussed with Nurse and Discussed with Patient
--- NOTE | 2025-01-28 13:28 | CM ---
Met with patient to obtain information for assessment. Patient stated that he lives with his in a two story home with two steps to enter. He described himself as independent with his ADLs, personal care, dressing and bathing. He can cook,
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 Patient and his are able to drive and can get patient to all of his appointments and do all the shopping. He has a w/c that he does not use. A walker, and a raised toilet seat with rails, none of which he
uses. Patient and his spouse have a cleaning service to assist with cleaning. Patient has not had VN services. He has not been to a SNF. Patient would like to return home with his when cleared for discharge.
OBS letter provided to patient. He signed and it is now on chart.
Patient will be able to discharge later today pending tolerating his lunch.
Plan: Case management will continue to follow and assist with discharge planning. Home when cleared.
[2025-01-28 15:39] VITALS: BP 152/66
--- NOTE | 2025-01-28 17:12 | W.DCSUMMARY ---
Discharge Summary
Discharge Data
Date of Admission: 01/27/25
Date of Discharge: 01/28/25
Total time spent discharging patient (in min): 33
-
Pending Results: Yes
Hospital Course
Discharging Physician :� Dwayne Oliva DO
Disposition :���� Home
Principal Discharge diagnosis :�
Recurrent mild SBO with spontaneous resolution
Peristomal fat herniation
Ventral hernia
Chronic Discharge diagnosis :�
CAD s/p PCI
s/p TAVR
TIM on CPAP
Iatrogenic Hypothyroidism
BPH
HLD
HTN
H/O UC s/p colectomy with end ileostomy
H/O Thyroid Ca s/p resection
Hospital Course :�
84M that presented from home with abdomen pain, nausea/vomiting x1, reduced ostomy output. CT on arival showed signs of SBO with peristomal fat herniation. Symptomatically improved shortly after arrival with resolution of N/V, abdomen pain, and
return of ostomy output. Did not require NGT during hospitalization. He was on CLD and diet was advanced to low-residue diet. He tolerated full diet without recurrent symptoms. Requested discharge as he had OP cardiology appointment the morning of
01/29/25 that he wanted to attend. Educated patient on red flag symptoms such as recurrent symptoms and lack of ostomy output as signs of SBO that would require him to come back to the ED for evaluation. Encouraged follow up with his PCP and outside
specialists.
Consultants : N/A
Important imaging findings :�
CT Abdomen/Pelvis w/ IV contrast (01/27/25)
IMPRESSION: Bowel assessment limited by lack of enteric contrast. Prior colectomy. Right mid to lower abdomen diverting ileostomy with herniation of mesenteric fat and numerous small bowel loops within the hernia sac measuring 14 cm. There are a few
small bowel loops within the hernia with mild fluid distention and mild wall thickening. Trace amount of fluid within the hernia sac. There are a few small bowel loops within the mid to lower abdomen which are also slightly distended with
intraluminal fluid. Findings suggest an element of small bowel obstruction. Cholelithiasis. No CT evidence of acute cholecystitis. Mild fatty infiltration of liver.
Procedure findings :� N/A
Follow-up :
[facility] on morning of 01/29 at 8am
PCP in 1 week
Discharge Plan
-
Patient Disposition: Home (Routine Discharge)
Discharge Diagnosis/Procedures: Mild SBO
History of recurrent SBO
Herniation of parastomal mesenteric fat
History of UC s/p colectomy with end ileostomy
Condition: Fair
Diet: Low Fiber and Low Residue
Activity: As tolerated
Driving Restrictions: As prior to admission
Bathing Restrictions: None
Blood Work: None
Others Tests: None
Activity Restrictions/Additional Instructions:
After discharge from the hospital you should schedule a follow-up appointment with your family doctor. Should be seen in office within 1 week of discharge
If you develop recurrence of abdomen pain, reduced output from your ostomy, or worsening nausea and vomiting then you need to return to the emergency department for reevaluation as these are signs that your obstruction has recurred.
Instructions: Small bowel obstruction - Discharge instructions
Referrals:
Veronica Aranda DO [Family Provider] -
Additional Discharge Medication Instructions: No medication changes
Prescriptions:
Continued
tamsulosin 0.4 MG capsule
0.4 mg PO QPM
finasteride 5 MG tablet
5 mg PO QPM
cholecalciferol (vitamin D3) [Vitamin D3] 1,000 UNIT capsule
1,000 unit PO QPM
levothyroxine 175 MCG tablet
175 mcg PO DAILY
enalapril maleate 10 MG tablet
20 mg PO DAILY
ascorbic acid (vitamin C) [Vitamin C] 500 MG tablet
500 mg PO DAILY
amlodipine 10 MG tablet
10 mg PO DAILY
aspirin 81 MG tablet,chewable
81 mg PO QPM
Centrum Silver 1 EACH tablet
1 ea PO DAILY
Visbiome 112.5 billion cell Capsule
1 cap PO DAILY Qty: 0
atorvastatin [Lipitor] 40 mg Tablet
40 mg PO QPM
gabapentin 100 mg Capsule
100 mg PO DAILY
coQ10 (ubiquinol) 100 mg Capsule
100 mg PO QPM
therapeutic multivitamin Tablet
1 tab PO DAILY
Discharge Orders:
Discharge Patient (As Directed); Ordered 01/28/25
Ordered By: Dwayne Oliva
Discharge Date and Time
Discharge Date/Time: 01/28/25 16:57
Print Language: [facility]
== END 2025-01-28 16:57 | disposition home or self-care (01) ==
LOC: 4 EAST ACU 21:44
PROVIDERS: ADMITTING PHYSICIAN Internal Medicine; ATTENDING PHYSICIAN Internal Medicine; EMERGENCY PHYSICIAN Emergency Medicine; FAMILY PHYSICIAN Family Medicine
DX: K56.609 Unspecified intestinal obstruction, unspecified as to partial versus complete obstruction (principal); R10.9 Unspecified abdominal pain; R11.2 Nausea with vomiting, unspecified; E78.00 Pure hypercholesterolemia, unspecified; I10 Essential (primary) hypertension; I25.10 Atherosclerotic heart disease of native coronary artery without angina pectoris; K51.90 Ulcerative colitis, unspecified, without complications; E89.0 Postprocedural hypothyroidism; K43.5 Parastomal hernia without obstruction or gangrene; I35.0 Nonrheumatic aortic (valve) stenosis; G47.33 Obstructive sleep apnea (adult) (pediatric); N40.0 Benign prostatic hyperplasia without lower urinary tract symptoms; K80.20 Calculus of gallbladder without cholecystitis without obstruction; K76.0 Fatty (change of) liver, not elsewhere classified; K63.89 Other specified diseases of intestine; I49.3 Ventricular premature depolarization; E66.9 Obesity, unspecified; Z93.3 Colostomy status; Z85.850 Personal history of malignant neoplasm of thyroid; Z95.5 Presence of coronary angioplasty implant and graft; Z90.49 Acquired absence of other specified parts of digestive tract; Z96.653 Presence of artificial knee joint, bilateral; Z95.3 Presence of xenogenic heart valve; Z88.0 Allergy status to penicillin; Z91.030 Bee allergy status; Z79.890 Hormone replacement therapy; Z79.82 Long term (current) use of aspirin; Z68.37 Body mass index [BMI] 37.0-37.9, adult
CPT/HCPCS: 74022; 74177; 80053; 83690; 85025; 93005; 96374; 96375; 96376; 99285; Q9967

== ENCOUNTER → 2025-02-27 08:56 | Outpatient (REF) | payer MEDICARE, OTHER, SELFPAY ==
[2025-02-27 11:19] LABS: ALT (SGPT) 25 U/L (0-50); AST (SGOT) 23 U/L (17-59); Albumin 4.2 g/dl (3.5-5.0); Alkaline Phosphatase 66 U/L (38-126); Blood Urea Nitrogen 23 mg/dl (9-20); Calcium 9.1 mg/dl (8.4-10.2); Carbon Dioxide 26 mmol/L (22-30); Chloride 109 mmol/L (98-107); Glucose 100 mg/dl (70-99); HDL Cholesterol 43 mg/dl; LDL Cholesterol, Calculated 39 mg/dl; Potassium 4.7 mmol/L (3.5-5.1); Sodium 140 mmol/L (135-145); Total Bilirubin 0.9 mg/dl (0.2-1.3); Total Cholesterol 102 mg/dl (50-199); Total Protein 6.3 g/dl (6.3-8.2); Triglyceride 103 mg/dl (10-149); Very Low Density Lipoprotein 20 mg/dl (0-30); eGFR > 60.00
== END ==
LOC: REG 08:56
PROVIDERS: ATTENDING PHYSICIAN Nuclear Medicine Nuclear Cardiology; FAMILY PHYSICIAN Internal Medicine Geriatric Medicine
DX: I10 Essential (primary) hypertension (principal); I25.10 Atherosclerotic heart disease of native coronary artery without angina pectoris; E78.2 Mixed hyperlipidemia
CPT/HCPCS: 36415; 80053; 80061

== ENCOUNTER → 2025-04-22 13:24 | Outpatient (REF) | payer MEDICARE, OTHER, SELFPAY | LOC: RAD 13:24 | PROVIDERS: ATTENDING PHYSICIAN Nurse Practitioner Family; FAMILY PHYSICIAN Internal Medicine Geriatric Medicine | DX: R05.1 Acute cough (principal); R06.89 Other abnormalities of breathing | CPT/HCPCS: 71046 ==